=== PATIENT | male | born 2000 | race Caucasian/White ===

== ENCOUNTER 2020-09-14 09:54 | Emergency (ER) | payer OTHER ==
[~2020-09-14] VITALS: Ht 190.5 cm; Wt 88.8 kg
[2020-09-14 09:55] VITALS: BP 125/71
[2020-09-14] MEDS ORDERED: ACETAMINOPHEN 500 MG TAB PO ONE (10:15)
[2020-09-14] MEDS ORDERED: KETOROLAC 30 MG/ML 1ML VIAL IM ONE (10:15)
--- NOTE | 2020-09-14 10:50 | REP ---
INDICATION: trauma. COMPARISON: None. TECHNIQUE: Five views FINDINGS: Five views of the lumbosacral spine show no acute fracture, dislocation or subluxation. The intervertebral disc spaces are symmetric and well maintained. There is no spondylolysis or spondylolisthesis. Lateral view shows slight loss of lordosis may reflect some spasm. The pedicles are intact bilaterally and there is no destructive osseous lesion. IMPRESSION: Some loss of lordosis on the lateral view that may reflect spasm, otherwise unremarkable lumbosacral spine series. <Electronically signed by Jasper San > 09/14/20 [id number]
[2020-09-14] MEDS ORDERED: NAPR-837 PO (11:08)
[2020-09-14] MEDS ORDERED: CYCL5TAB PO (11:08)
== END 2020-09-14 11:34 | disposition home or self-care (01) ==
LOC: M ED 09:54
DX: S29.012A Strain of muscle and tendon of back wall of thorax, initial encounter (principal); S20.219A Contusion of unspecified front wall of thorax, initial encounter; W00.0XXA Fall on same level due to ice and snow, initial encounter; Y92.89 Other specified places as the place of occurrence of the external cause
CPT/HCPCS: 72110; 96372; 99282; J1885